=== PATIENT | female | born 1960 | race Caucasian/White ===

== ENCOUNTER 2016-11-24 23:17 | Emergency (ER) | payer SELFPAY ==
[~2016-11-24] VITALS: Ht 154.9 cm; Wt 56.7 kg
[~2016-11-24 23:17] MED LIST: HYDR-3583 PO
--- OUTSIDE RECORDS SUMMARY | 2016-11-24 23:25 | XMS REPORT ---
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 Role Phone YG OSMAN CP Unavailable Allergies No Known Allergies Problems Problem Type Condition ICD-9 Code Onset Dates Condition Status Problem Other malaise and fatigue 780.79 Active Assessment Dental examination V72.2 Active Problem Acute sinusitis, unspecified 461.9 Active Medications No Known Medications Procedures Procedure Coding System Code Date INTRAORL-PERIAPICAL 1 FILM 66463 CPT-4 D0220 September 30, 2014 BITEWINGS - TWO FILMS CPT-4 D0272 September 30, 2014 LTD ORAL EVALUATION - PROBLEM FOCUS CPT-4 D0140 September 30, 2014 EXTRAC ERUPTED TOOTH/EXPOSED ROOT CPT-4 D7140 September 30, 2014 Results No Known Results Summary Purpose [employer] Submission
--- NOTE | 2016-11-24 23:36 | ED GI ---
General Chief Complaint: Abdominal/GI Problems Stated Complaint: UPPER ABD PAIN Source of Information: Patient, Other Exam Limitations: No Limitations History of Present Illness Time Seen By Provider: 23:26 Initial Comments Patient presents to ER with a chief complaint of epigastric cramping pain that is intermittent and colicky and accompanied by some nausea and retching for the past 1-1/2 days. She has no fever or chills nor dysuria or shortness of breath or cough. No other significant medical problems. She takes an antihistamine for allergies only. No sick contacts. No recent antibiotic use. No diarrhea or constipation however she has had 3 bowel movements today already. Allergies and Home Medications Allergies Coded Allergies: Penicillins (Unverified Allergy, Mild, 04/20/09) Home Medications No Active Prescriptions or Reported Meds Review of Systems Constitutional: No chills, No diaphoresis EENTM: No Eye Pain, No Ear Pain Respiratory: Denies Cough, Denies Orthopnea Cardiovascular: Denies Chest Pain, Denies Edema, Denies Irregular Heart Rate, Denies Lightheadedness Gastrointestinal: See HPI, Abdominal Pain (epigastric), Denies Constipated, Denies Diarrhea, Denies Difficulty Swallowing, Nausea Genitourinary: Denies Burning, Denies Discharge Musculoskeletal: No back pain, No joint pain Skin: No pruritus, No rash Psychiatric/Neurological: Denies Headache, Denies Numbness, Denies Paresthesia Past Gnijquy-Hbiark-Efmgny Hx Patient Social History Alcohol Use: Denies Use Recreational Drug Use: No Smoking Status: Current Everyday Smoker Type Used: Cigarettes (0.75 ppd) Recent Foreign Travel: No Contact w/Someone Who Travel: No Reproductive System Hx Reproductive Disorders: No Physical Exam Vital Signs Capillary Refill : General Appearance: WD/WN, no apparent distress HEENT: PERRL/EOMI, normal ENT inspection, pharynx normal Neck: non-tender, supple, normal inspection Respiratory: chest non-tender, lungs clear, normal breath sounds Cardiovascular: normal peripheral pulses, regular rate, rhythm, no edema Peripheral Pulses: 2+ Radial Pulses (R), 2+ Radial Pulses (L) Gastrointestinal: soft, no organomegaly, no pulsatile mass, abnormal bowel sounds (hyperactive bowel sounds), tenderness (epigastric mildly tender) Back: normal inspection, no CVA tenderness Neurologic/Psychiatric: alert, oriented x 3 Skin: normal color, warm/dry Lymphatic: no adenopathy Departure Impression Impression: Primary Impression: Viral gastroenteritis Disposition: 01 HOME, SELF-CARE Condition: Stable Departure-Patient Inst. Decision time for Depature: 23:34 Referrals: [facility] (PCP/Family) Primary Care Physician Patient Instructions: Viral Gastroenteritis Add. Discharge Instructions: Your goal is to drink adequate fluids. If you're nauseated take one tablet of Zofran and place under your tongue and allowed to absorb to your mouth every 6 hours as needed. If he begins to have diarrhea just drink more fluids. If the diarrhea persists for greater than 24-48 hours he can take 2 tablets of Imodium and then one more tablet every 4 hours until the diarrhea stops. Keep your hands clean with soap and water or antiseptic rinse. If your symptoms persist for greater than 10 days or you begin to have new or worrisome symptoms you should follow up with your primary care physician for further evaluation. If you have diarrhea eat bananas, rice, applesauce, toast or other high-fiber foods and drink plenty of fluids. All discharge instructions reviewed with patient and/or family. Voiced understanding. Scripts Ondansetron (Zofran Odt) 4 Mg Tab.rapdis 4 MG PO Q6H Y for NAUSEA/VOMITING-1ST LINE, #10 TAB 0 Refills Prov: BALDOMERO COCHRAN 11/24/16 Copy Copies To 1: SAM BLACK TITUS J Nov 24, 2016 23:36
[2016-11-24] MEDS ORDERED: ONDA4TAB8 PO (23:37)
[2016-11-24] MEDS ORDERED: RX-ONDANSETRON 4 MG ODT (ZOFRAN) PPK #4 PO STA (23:38)
[2016-11-24 23:43] VITALS: BP 149/84
== END 2016-11-24 23:41 | disposition home or self-care (01) ==
LOC: EDUNIT# 23:17 → ER 23:20
DX: A08.4 Viral intestinal infection, unspecified (principal); F17.210 Nicotine dependence, cigarettes, uncomplicated
CPT/HCPCS: 99283

== ENCOUNTER 2016-12-24 19:02 | Emergency (ER) | payer SELFPAY ==
[~2016-12-24] VITALS: Ht 157.5 cm; Wt 61.2 kg
[~2016-12-24 19:02] MED LIST changes: +ONDA4TAB8 PO
--- OUTSIDE RECORDS SUMMARY | 2016-12-24 19:07 | XMS REPORT | Continuity of Care Document ---
Demographics Preferred Language Unknown Marital Status Unknown Jainism Affiliation Unknown Race Unknown Ethnic Group Unknown Author Author [facility] Address Unknown Phone Unavailable Allergies Active Description Code Type Severity Reaction Onset Reported/Identified Relationship to Patient Clinical Status Yes Penicillins [id number] Drug Allergy Mild N/A 04/20/2009 Yes Penicillins Drug Allergy 12/09/2009 Medications Problems Date Dx Coded Attending Type Code Diagnosis Diagnosed By 12/09/2009 466.0 ACUTE BRONCHITIS 12/09/2009 466.0 ACUTE BRONCHITIS 04/29/2010 465.9 UPPER RESPIRATORY INFECTION 04/29/2010 V17.3 reported family history ischemic heart disease before age 50 04/29/2010 465.9 UPPER RESPIRATORY INFECTION 04/29/2010 V17.3 reported family history ischemic heart disease before age 50 12/16/2010 Ot 610.0 01/12/2011 Ot 610.1 04/09/2012 780.79 feeling tired or poorly 04/09/2012 780.79 feeling tired or poorly 04/29/2012 461.9 SINUSITIS ACUTE 02/02/2014 Ot 610.0 02/02/2014 Ot 793.89 02/02/2014 Ot V15.89 02/02/2014 Ot 610.0 02/02/2014 Ot V67.9 02/02/2014 Ot 610.0 02/02/2014 Ot 610.3 02/02/2014 Ot 610.4 02/02/2014 Ot 611.89 02/02/2014 Ot 610.0 02/02/2014 Ot V15.89 02/02/2014 Ot V67.09 02/02/2014 Ot 610.0 02/02/2014 Ot 611.72 02/02/2014 Ot V72.84 02/02/2014 Ot V74.8 02/02/2014 Ot 610.1 02/02/2014 Ot V67.09 02/02/2014 Ot 793.80 02/02/2014 Ot V67.9 02/02/2014 MADDI RALPH DO Ot 793.80 02/02/2014 MADDI RALPH DO Ot V67.9 02/02/2014 MADDI RALPH DO Ot 793.80 11/24/2016 Ot 610.1 DIFFUS CYSTIC MASTOPATHY 11/24/2016 Ot V67.09 SURGERY FOLLOW-UP, OTHER SURGERY 11/24/2016 Ot 793.80 UNSPEC ABNORMAL MAMMOGRAM 11/24/2016 Ot V67.9 FOLLOW-UP EXAM NOS 11/24/2016 MADDI RALPH DO Ot 793.80 UNSPEC ABNORMAL MAMMOGRAM 11/24/2016 MADDI RALPH DO Ot V67.9 FOLLOW-UP EXAM NOS 11/24/2016 MADDI RALPH DO Ot 793.80 UNSPEC ABNORMAL MAMMOGRAM 11/24/2016 MADDI RALPH DO Ot 610.1 DIFFUS CYSTIC MASTOPATHY 11/24/2016 SAMMIE UREÑA, BALDOMERO J Ot A08.4 VIRAL INTESTINAL INFECTION, UNSPECIFIED 11/24/2016 SAMMIE UREÑA, BALDOMERO J Ot F17.210 NICOTINE DEPENDENCE, CIGARETTES, UNCOMPL 11/24/2016 SAMMIE UREÑA, BALDOMERO J Ot R10.13 EPIGASTRIC PAIN 11/24/2016 Ot 610.1 DIFFUS CYSTIC MASTOPATHY 11/24/2016 Ot V67.09 SURGERY FOLLOW-UP, OTHER SURGERY 11/24/2016 Ot 793.80 UNSPEC ABNORMAL MAMMOGRAM 11/24/2016 Ot V67.9 FOLLOW-UP EXAM NOS 11/24/2016 MADDI RALPH DO Ot 793.80 UNSPEC ABNORMAL MAMMOGRAM 11/24/2016 MADDI RALPH DO Ot V67.9 FOLLOW-UP EXAM NOS 11/24/2016 MADDI RALPH DO Ot 793.80 UNSPEC ABNORMAL MAMMOGRAM 11/24/2016 MADDI RALPH DO Ot 610.1 DIFFUS CYSTIC MASTOPATHY 11/26/2016 SAMMIE UREÑA, BALDOMERO J Ot A08.4 VIRAL INTESTINAL INFECTION, UNSPECIFIED 11/26/2016 SAMMIE UREÑA, BALDOMERO J Ot F17.210 NICOTINE DEPENDENCE, CIGARETTES, UNCOMPL 11/26/2016 SAMMIE UREÑA, BALDOMERO J Ot R10.13 EPIGASTRIC PAIN Procedures Code [place] [address] INFLUENZA A & B (IN-HOUSE) 04/09/2012 Results Encounters ACCT No. Visit Date/Time Discharge Status Pt. Type Provider Facility Loc./Unit Complaint [id number] 04/29/2012 16:15:00 04/29/2012 23: 59:59 CLS Outpatient [id number] 04/09/2012 16:28:00 04/09/2012 23: 59:59 CLS Outpatient [id number] 11/24/2016 23:20:00 2016 23:41:00 DIS Emergency SAMMIE UREÑA, BALDOMERO Jessica [facility] ER UPPER ABD PAIN [id number] 02/02/2014 14:07:00 2013 23:59:59 CLS Outpatient RALPH DO, MADDI W [facility] RAD FIBROCYSTIC BREASTS [id number] 01/09/2013 13:38:00 2012 23:59:59 CLS Outpatient RALPH DO, MADDI W [facility] RAD ABNORMAL BREAST US [id number] 12/12/2012 12:58:00 2012 23:59:59 CLS Outpatient RALPH DO, MADDI W [facility] RAD SIX MONTH FOLLOW-UP,ABN MAMMO [id number] 06/11/2012 13:44:00 Document Registration [id number] 12/12/2011 13:56:00 Document Registration [id number] 01/12/2011 05:39:00 Document Registration [id number] 01/09/2011 08:32:00 Document Registration [id number] 12/16/2010 10:19:00 Document Registration [id number] 10/11/2010 10:48:00 Document Registration [id number] 06/21/2010 12:47:00 Document Registration [id number] 11/24/2009 13:49:00 Document Registration [id number] 10/19/2009 10:57:00 Document Registration [id number] 07/14/2009 09:07:00 Document Registration [id number] 03/23/2009 13:29:00 Document Registration
--- NOTE | 2016-12-24 19:54 | ED Lower Extremity ---
General Chief Complaint: Lower Extremity Stated Complaint: R LEG PAIN Nursing Triage Note: PT AMBULATORY TO ROOM C/O right LEG/KNEE PAIN, DENIES INJURY. STATES SHE NOTICED IT APPROX 1 WEEK AGO AND PAIN HAS GOTTEN WORSE PSAT FEW DAYS. Nursing Sepsis Screen: No Definite Risk Source: patient Exam Limitations: no limitations History of Present Illness Time seen by provider: 19:54 Initial Comments 56-year-old female patient presents to the emergency department complains of right lower extremity/right knee pain. Patient denies any known injury. Reports symptom onset was approximately one week ago. Has noticed increased swelling behind the right knee and down to the right medial ankle. Denies claudication, shortness of air, chest pain. Onset: last week Pain/Injury Location: right leg, right knee Method of Injury: unknown Modifying Factors: Worse With Movement, Worse With Other (worse with palpation. ) Allergies and Home Medications Allergies Coded Allergies: Penicillins (Unverified Allergy, Mild, 04/20/09) Home Medications Naproxen 500 Mg Tablet, 500 MG PO BID, #20 Ref 0 Prescribed by: ELIZABETH PENDLETON on 12/24/162136 Ondansetron 4 Mg Tab.rapdis, 4 MG PO Q6H PRN for NAUSEA/VOMITING-1ST LINE, #10 Ref 0 Prescribed by: BALDOMERO COCHRAN on 11/24/162336 Prednisone 20 Mg Tab, 40 MG PO DAILY, #10 Ref 0 Prescribed by: ELIZABETH PENDLETON on 12/24/162136 Past Qtzqfms-Qrzbjj-Jngxki Hx Patient Social History Alcohol Use: Denies Use Recreational Drug Use: No Type Used: Cigarettes 2nd Hand Smoke Exposure: Yes Recent Foreign Travel: No Contact w/Someone Who Travel: No Recent Infectious Disease Expo: No Recent Hopitalizations: No Physical Abuse: No Sexual Abuse: No Immunizations Up To Date Tetanus Booster (TDap): Unknown Seasonal Allergies Seasonal Allergies: Yes Surgeries History of Surgeries: No Respiratory History of Respiratory Disorde: No Cardiovascular History of Cardiac Disorders: No Neurological History of Neurological Disord: No Reproductive System Hx Reproductive Disorders: No Sexually Transmitted Disease: No 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 Genitourinary History of Genitourinary Disor: No Gastrointestinal History of Gastrointestinal Di: No Musculoskeletal History of Musculoskeletal Dis: No Endocrine History of Endocrine Disorders: No HEENT History of HEENT Disorders: No Cancer History of Cancer: No Psychosocial History of Psychiatric Problem: No Suicide Risk Score: 0 Integumentary History of Skin or Integumenta: No Blood Transfusions History of Blood Disorders: No Physical Exam Vital Signs Vital Sign - Last 12Hours 12/24/16 19:21 Temp 97.8 Pulse 80 Resp 14 B/P (MAP) 120/71 Pulse Ox 99 O2 Delivery Room Air Capillary Refill : Less Than 3 Seconds Progress/Results/Core Measures Results/Orders My Orders Orders - ELIZABETH PENDLETON Knee, Right, 3 Views (12/24/16 20:04) Us Venous Lower Ext Rt (12/24/16 20:04) Vital Signs/I&O Vital Sign - Last 12Hours 12/24/16 12/24/16 19:21 21:40 Temp 97.8 97.8 Pulse 80 75 Resp 14 16 B/P (MAP) 120/71 Pulse Ox 99 99 O2 Delivery Room Air Blood Pressure Mean: 87 Departure Impression Impression: Primary Impression: Effusion, right knee Additional Impression: Pain of right lower extremity Disposition: 01 HOME, SELF-CARE Condition: Improved Departure-Patient Inst. Decision time for Depature: 21:32 Referrals: [facility] (PCP/Family) Primary Care Physician Patient Instructions: Osteoarthritis (DC) Add. Discharge Instructions: All discharge instructions reviewed with patient and/or family. Voiced understanding. Medications as instructed. Tylenol extra strength over-the- counter as directed for pain. Ice pack or heating pads as needed for pain. Follow-up with your primary care provider if no improvement in symptoms in 7-10 days. Return to the emergency department for worsened pain, swelling, numbness , weakness, discoloration, or any other concerns. Scripts Naproxen (Naprosyn) 500 Mg Tablet 500 MG PO BID, #20 TAB 0 Refills Prov: ELIZABETH PENDLETON 12/24/16 Prednisone (Prednisone) 20 Mg Tab 40 MG PO DAILY, #10 TAB 0 Refills Prov: ELIZABETH PENDLETON 12/24/16 ELIZABETH PENDLETON Dec 24, 2016 19:54
--- NOTE | 2016-12-24 20:22 | Diagnostic Imaging Report ---
INDICATION: Right knee pain, denies injury, symptoms started one week ago, getting worse for the last couple of days with some swelling. COMPARISON STUDY: None FINDINGS: 3 views of the right knee demonstrate normal ossification. No fracture, dislocation or joint effusion is present. IMPRESSION: Negative right knee. Dictated by: Dictated on workstation # [id number]
--- NOTE | 2016-12-24 21:20 | Diagnostic Imaging Report ---
INDICATION: Right lower extremity pain. COMPARISON STUDIES: None. FINDINGS: Right lower extremity venous Doppler demonstrates no evidence of DVT. No fluid collections are identified. IMPRESSION: Negative right lower extremity venous Doppler. Dictated by: Dictated on workstation # [id number]
[2016-12-24] MEDS ORDERED: PRD20T PO (21:37)
[2016-12-24] MEDS ORDERED: NAPR500T PO (21:37)
[2016-12-24 21:40] VITALS: BP 125/72
== END 2016-12-24 21:39 | disposition home or self-care (01) ==
LOC: EDUNIT# 19:02 → ER 19:04
DX: M25.461 Effusion, right knee (principal); M79.604 Pain in right leg; Z77.22 Contact with and (suspected) exposure to environmental tobacco smoke (acute) (chronic)
CPT/HCPCS: 73562; 99281

== ENCOUNTER → 2017-01-30 | Outpatient (CLI) | payer OTHER ==
[~2017-01-30] MED LIST changes: +NAPR500T PO; +PRD20T PO
--- NOTE | 2017-01-30 10:30 | Diagnostic Imaging Report ---
PROCEDURE: MRI right joint lower extremity without contrast. TECHNIQUE: Multiplanar, multisequence non contrast-enhanced MRI of the right lower extremity was accomplished. INDICATION: Right knee pain. FINDINGS: There is a tiny suprapatellar effusion. There is mild thickening in the quadriceps tendon distally probably sequela of prior injury with mild tendinosis. The patellar tendon appears intact. The ACL and the PCL are intact. There is a nondisplaced oblique tear involving the posterior horn and extending to the body of the medial meniscus. The anterior horn appears intact. There is an oblique horizontal nondisplaced tear involving the body of the lateral meniscus with slight extension into the anterior horn and posterior horn. There is also slight thickening and nonspecific increased signal in the posterior root of the lateral meniscus probably sequela of an old injury. The MCL and the lateral collateral ligament complex are intact. Mild cystic change along the tibial spine is seen. There is also mild subchondral edema along the lateral aspect of the lateral tibial plateau and subchondral edema in the mid patella level. This appears to be degenerative related. There is 25-50% cartilage thinning in the patellofemoral compartment and cartilage fissuring in the medial and lateral compartments without overall significant thinning. There are marginal osteophytes seen in the three compartments. IMPRESSION: 1. There are medial and lateral meniscal nondisplaced tears. 2. Suggestion of old injury and mild tendinosis involving the distal quadriceps tendon. 3. Generally mild tricompartment osteoarthritis changes. Dictated by: Dictated on workstation # [id number]
== END ==
LOC: RAD 08:51
PROVIDERS: ATTEND Family Medicine
DX: S83.241A Other tear of medial meniscus, current injury, right knee, initial encounter (principal); S83.281A Other tear of lateral meniscus, current injury, right knee, initial encounter; X58.XXXA Exposure to other specified factors, initial encounter; Y99.8 Other external cause status
CPT/HCPCS: 73721

== ENCOUNTER 2017-03-22 21:37 | Emergency (ER) | payer SELFPAY ==
[~2017-03-22] VITALS: Ht 157.5 cm; Wt 61.2 kg
[~2017-03-22 21:37] MED LIST changes: +NAPR-1071 PO; -NAPR500T PO
--- NOTE | 2017-03-22 22:22 | ED Lower Extremity ---
General Chief Complaint: Lower Extremity Stated Complaint: RT KNEE PAIN Nursing Triage Note: patient states that she has been having knee pain x2 days. it is slightly swollen. cortisone shot 02/[address] hernandez and told to exercise for tendonitis. Nursing Sepsis Screen: No Definite Risk Source: patient Exam Limitations: no limitations History of Present Illness Time seen by provider: 22:20 Initial Comments To ER with intermittent right knee pain for 2 days. A few weeks ago she was seen at [facility] by Villa Hernandez, nurse practitioner. Return MRI done which showed some sort of ligament injury she states. She received a steroid injection in the right knee laterally on February 22. She denies fevers chills. Onset: yesterday Severity: moderate Pain/Injury Location: right knee Method of Injury: fell Modifying Factors: Worse With Movement Allergies and Home Medications Allergies Coded Allergies: Penicillins (Unverified Allergy, Mild, 04/20/09) Home Medications Naproxen 500 Mg Tablet, 500 MG PO BID, #20 Ref 0 Prescribed by: ELIZABETH PENDLETON on 12/24/162136 Ondansetron 4 Mg Tab.rapdis, 4 MG PO Q6H PRN for NAUSEA/VOMITING-1ST LINE, #10 Ref 0 Prescribed by: BALDOMERO COCHRAN on 11/24/16 2337 Prednisone 20 Mg Tab, 40 MG PO DAILY, #10 Ref 0 Prescribed by: ELIZABETH PENDLETON on 12/24/162136 Tramadol HCl 50 Mg Tablet, 50 MG PO Q6H PRN for PAIN-MODERATE, #20 Prescribed by: EMERALD TORRES on 03/22/17 2241 Constitutional: see HPI EENTM: see HPI Respiratory: no symptoms reported Cardiovascular: no symptoms reported Genitourinary: no symptoms reported Musculoskeletal: no symptoms reported Skin: no symptoms reported Psychiatric/Neurological: No Symptoms Reported Past Qicjamt-Qfmhjs-Qxlfqx Hx Patient Social History Alcohol Use: Denies Use Recreational Drug Use: No Type Used: Cigarettes 2nd Hand Smoke Exposure: Yes Recent Foreign Travel: No Contact w/Someone Who Travel: No Recent Infectious Disease Expo: No Recent Hopitalizations: No Physical Abuse: No Sexual Abuse: No Immunizations Up To Date Tetanus Booster (TDap): Unknown Seasonal Allergies Seasonal Allergies: Yes Surgeries History of Surgeries: No Respiratory History of Respiratory Disorde: No Cardiovascular History of Cardiac Disorders: No Neurological History of Neurological Disord: No Reproductive System Hx Reproductive Disorders: No Sexually 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 Disease: 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 Genitourinary History of Genitourinary Disor: No Gastrointestinal History of Gastrointestinal Di: No Musculoskeletal History of Musculoskeletal Dis: No Endocrine History of Endocrine Disorders: No HEENT History of HEENT Disorders: No Cancer History of Cancer: No Psychosocial History of Psychiatric Problem: No Suicide Risk Score: 0 Integumentary History of Skin or Integumenta: No Blood Transfusions History of Blood Disorders: No Family Medical History Significant Family History: No Pertinent Family Hx Physical Exam Vital Signs Vital Sign - Last 12Hours 03/22/17 21:48 Temp 97.6 Pulse 89 Resp 20 B/P (MAP) 128/72 (90) Pulse Ox 94 O2 Delivery Room Air Capillary Refill : Less Than 3 Seconds General Appearance: WD/WN, no apparent distress HEENT: PERRL/EOMI, normal ENT inspection Neck: non-tender, full range of motion Respiratory: no respiratory distress, no accessory muscle use Hips: bilateral hip non-tender, bilateral hip normal inspection, bilateral hip normal range of motion Legs: bilateral leg non-tender, bilateral leg normal inspection, bilateral leg normal range of motion Knees: right knee pain, right knee soft tissue tenderness, right knee swelling , right knee other (no erythema but there is some swelling without palpable large joint effusion. There is a palpable small joint effusion.) Ankles: bilateral ankle non-tender, bilateral ankle normal inspection, bilateral ankle normal range of motion Feet: bilateral foot non-tender, bilateral foot normal inspection, bilateral foot normal range of motion Neurologic/Psychiatric: alert, normal mood/affect, oriented x 3 Progress/Results/Core Measures Results/Orders Lab Results Laboratory Tests Test 03/22/17 22:20 Range/Units White Blood Count 7.9 4.3-11.0 10^3/uL Red Blood Count 4.89 4.35-5.85 10^6/uL Hemoglobin 14.2 11.5-16.0 G/DL Hematocrit 37 35-52 % Mean Corpuscular Volume 77 L 80-99 FL Mean Corpuscular Hemoglobin 29 25-34 PG Mean Corpuscular Hemoglobin Concent 38 H 32-36 G/DL Red Cell Distribution Width 12.9 10.0-14.5 % Platelet Count 282 130-400 10^3/uL Mean Platelet Volume 8.9 7.4-10.4 FL Neutrophils (%) (Auto) 49 42-75 % Lymphocytes (%) (Auto) 40 12-44 % Monocytes (%) (Auto) 6 0-12 % Eosinophils (%) (Auto) 4 0-10 % Basophils (%) (Auto) 1 0-10 % Neutrophils # (Auto) 3.9 1.8-7.8 X 10^3 Lymphocytes # (Auto) 3.1 1.0-4.0 X 10^3 Monocytes # (Auto) 0.4 0.0-1.0 X 10^3 Eosinophils # (Auto) 0.3 0.0-0.3 10^3/uL Basophils # (Auto) 0.1 0.0-0.1 10^3/uL C-Reactive Protein High Sensitivity 0.64 H 0.00-0.50 MG/DL My Orders Orders - EMERALD TORRES APRN Knee, Right, 3 Views (03/22/17 22:03) Cbc With Automated Diff (03/22/17 22:03) Erythrocyte Sedimentation Rate (03/22/17 22:03) Hs C Reactive Protein (03/22/17 22:03) Vital Signs/I&O Vital Sign - Last 12Hours 03/22/17 21:48 Temp 97.6 Pulse 89 Resp 20 B/P (MAP) 128/72 (90) Pulse Ox 94 O2 Delivery Room Air Blood Pressure Mean: 90 Departure Impression Impression: Primary Impression: Arthritis of right knee Additional Impression: Knee effusion, right Disposition: 01 HOME, SELF-CARE Condition: Stable Departure-Patient Inst. Decision time for Depature: 22:22 Referrals: FARNAZ PRATHER MD (PCP/Family) Primary Care Physician Patient Instructions: Arthritis and Exercise Add. Discharge Instructions: All discharge instructions reviewed with patient and/or family. Voiced understanding. Scripts Tramadol HCl (Ultram) 50 Mg Tablet 50 MG PO Q6H Y for PAIN-MODERATE, #20 TAB Prov: EMERALD TORRES APRN 03/22/17 EMERALD TORRES APRN Mar 22, 2017 22:22
[2017-03-22 22:36] LABS: BASOPHILS # (AUTO) 0.1 10^3/uL (0.0-0.1); BASOPHILS % (AUTO) 1 % (0-10); EOSINOPHILS # (AUTO) 0.3 10^3/uL (0.0-0.3); EOSINOPHILS % (AUTO) 4 % (0-10); HEMATOCRIT 37 % (35-52); HEMOGLOBIN 14.2 G/DL (11.5-16.0); LYMPHOCYTES # (AUTO) 3.1 X 10^3 (1.0-4.0); LYMPHOCYTES % (AUTO) 40 % (12-44); MEAN CORPUSCULAR HEMOGLOBIN 29 PG (25-34); MEAN CORPUSCULAR HGB CONC 38 G/DL (32-36); MEAN CORPUSCULAR VOLUME 77 FL (80-99); MEAN PLATELET VOLUME 8.9 FL (7.4-10.4); MONOCYTES # (AUTO) 0.4 X 10^3 (0.0-1.0); MONOCYTES % (AUTO) 6 % (0-12); NEUTROPHILS # (AUTO) 3.9 X 10^3 (1.8-7.8); NEUTROPHILS % (AUTO) 49 % (42-75); PLATELET COUNT 282 10^3/uL (130-400); RED BLOOD COUNT 4.89 10^6/uL (4.35-5.85); RED CELL DISTRIBUTION WIDTH 12.9 % (10.0-14.5); WHITE BLOOD COUNT 7.9 10^3/uL (4.3-11.0)
[2017-03-22] MEDS ORDERED: TRAM-42 PO (22:41)
[2017-03-22 22:58] VITALS: BP 128/72
[2017-03-22 23:20] LABS: ERYTHROCYTE SEDIMENTATION RATE 10 MM/HR (0-30)
--- NOTE | 2017-03-23 08:08 | Diagnostic Imaging Report ---
INDICATION: Ligamentous injury. No substantial joint effusion. No fracture or dislocation. When compared to the study of 12/24/2016, no obvious change. IMPRESSION: No acute appearing abnormality Dictated by: Dictated on workstation # [id number]
== END 2017-03-22 22:58 | disposition home or self-care (01) ==
LOC: EDUNIT# 21:37 → ER 21:38
DX: M17.11 Unilateral primary osteoarthritis, right knee (principal); Z77.22 Contact with and (suspected) exposure to environmental tobacco smoke (acute) (chronic)
CPT/HCPCS: 36415; 73562; 85025; 85652; 86141; 99283

== ENCOUNTER 2018-02-23 18:33 | Emergency (ER) | payer SELFPAY ==
[~2018-02-23] VITALS: Ht 157.5 cm; Wt 59.0 kg
[~2018-02-23 18:33] MED LIST changes: +TRAM-42 PO
[2018-02-23] MEDS ORDERED: BUPIVACAINE 0.5% 30 ML (SENSORCAINE) VIAL ONE (18:47)
[2018-02-23] MEDS ORDERED: LIDOCAINE 2% VISCOUS 15 ML UDC ONE (18:47)
--- NOTE | 2018-02-23 18:52 | ED EENT ---
History of Present Illness General Chief Complaint: Dental Problems/Pain Stated Complaint: DENTAL PAIN/FACIAL SWELLING Nursing Triage Note: Pt has cc of dental pain and dental swelling of the right side. Pt stated that it has been going on for the past 4 days, but the pain/swelling has gotten worse yesterday/today. Pt tried to go to walk in clinic, but they were closed. Source: patient, family Exam Limitations: no limitations History of Present Illness Date Seen by Provider: Feb 23, 2018 Time Seen by Provider: 18:40 Initial Comments The patient's having presented to the ER by private conveyance with family and chief complaint of 4 days progressively worsening right lower jaw pain and swelling. She says she has bad gum disease and has plans after the first year to have her dentist do a complete dental extraction. She's having no fevers discharge or immunocompromise. She does take meloxicam daily for her knee. She' s been using Tylenol and topical dental gels derd-xxj-oanwwrt with no relief. She has not been on antibiotics for years. Allergies and Home Medications Allergies Coded Allergies: Penicillins (Unverified Allergy, Mild, 04/20/09) Home Medications Naproxen 500 Mg Tablet, 500 MG PO BID Prescribed by: ELIZABETH PENDLETON on 12/24/162136 Ondansetron 4 Mg Tab.rapdis, 4 MG PO Q6H PRN for NAUSEA/VOMITING-1ST LINE Prescribed by: BALDOMERO COCHRAN on 11/24/16 2337 Prednisone 20 Mg Tab, 40 MG PO DAILY Prescribed by: ELIZABETH PENDLETON on 12/24/162136 Tramadol HCl 50 Mg Tablet, 50 MG PO Q6H PRN for PAIN-MODERATE Prescribed by: EMERALD TORRES on 03/22/17 2241 Patient Home Medication List Home Medication List Reviewed: Yes Review of Systems Review of Systems Constitutional: No chills, No diaphoresis Eyes: Denies Blindness, Denies Blurred Vision Ears: Denies Dizziness, Denies Pain Nose: denies clots, denies congestion Mouth: denies clots, denies loose teeth; pain Throat: denies pain, denies swelling Respiratory: No cough, No phlegm Past Jhdqmqu-Uwuogq-Gexjor Hx Patient Social History Alcohol Use: Denies Use Recreational Drug Use: No Smoking Status: Current Everyday Smoker Type Used: Cigarettes 2nd Hand Smoke Exposure: Yes Recent Foreign Travel: No Contact w/Someone Who Travel: No Recent Infectious Disease Expo: No Recent Hopitalizations: No Physical Abuse: No Sexual Abuse: No Mistreated: No Fear: No Immunizations Up To Date Tetanus Booster (TDap): Unknown Seasonal Allergies Seasonal Allergies: Yes Past Medical History Surgeries: No Respiratory: No Cardiac: No Neurological: No Reproductive Disorders: No 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 0oz. 58.335233va; BMI Method:Stated General Appearance: WD/WN, mild distress Eyes: bilateral eye normal inspection, bilateral eye PERRL, bilateral eye EOMI Ears: bilateral ear auricle normal, bilateral ear canal normal, bilateral ear TM normal Nose: normal inspection; No active bleeding Mouth/Throat: other (advanced state of dental decay with some gingival swelling but no fluctuance or abscess.) Cardiovascular: normal peripheral pulses, regular rate, rhythm Gastrointestinal: non tender, soft Procedures/Interventions Progress Right lower alveolar nerve block using 2 cc of half percent Marcaine with epinephrine and 1 cc of 1% lidocaine without epinephrine. We found our landmarks place the needle right spot patient did pull back a bit after we have aspirated and started to inject but I think we got most of the 2 cc of the mixture into the vicinity of the alveolar nerve. Patient tolerated procedure well. Progress/Results/Core Measures Results/Orders My Orders Orders - BALDOMERO COCHRAN Bupivacaine 0.5% W/Epi Inj (Sensorcaine (02/23/18 19:00) Lidocaine 2% Viscous 15 Ml (Xylocaine Vi (02/23/18 19:00) Lidocaine 2% Viscous 15 Ml (Xylocaine Vi (02/23/18 18:47) Bupivacaine 0.5% Injection (Sensorcaine (02/23/18 18:47) Medications Given in ED Current Medications Medications Dose Ordered Sig/[place] Route Start Time Stop Time Status Last Admin Dose Admin Bupivacaine HCl/ Epinephrine Bitart 30 ml ONCE ONCE INJ 02/23/18 19:00 02/23/18 19:01 02/23/18 18:53 30 ML Lidocaine HCl 15 ml ONCE ONCE PO 02/23/18 19:00 02/23/18 19:01 02/23/18 18:52 15 ML Vital Signs/I&O 02/23/18 18:39 Temp 99.1 Pulse 76 Resp 16 B/P (MAP) 122/76 (91) Pulse Ox 99 O2 Delivery Room Air Blood Pressure Mean: 91 Progress Progress Note : Time: 19:00 Progress Note The patient is accepted to do an alveolar nerve block. Viscous lidocaine clindamycin antibiotics and continue the Tylenol and heat. Departure Impression Primary Impression: Abscess, dental Disposition: HOME, SELF-CARE Condition: Stable Departure-Patient Inst. Decision time for Depature: 19:01 Referrals: FARNAZ PRATHER MD (PCP/Family) Primary Care Physician Patient Instructions: Dental Pain (DC) Add. Discharge Instructions: Use the viscous lidocaine every 2 hours as needed on gauze applied directly to the gums or teeth that are hurting. Continue use heat and Tylenol 1000 mg every 8 hours. Continue to use the meloxicam as prescribed. marketing support specialist the antibiotics and start taking the clindamycin. Sunday morning call a dentist and an appointment. All discharge instructions reviewed with patient and/or family. Voiced understanding. Scripts Clindamycin HCl (Clindamycin HCl) 150 Mg Capsule 450 MG PO TIDAC for 7 Days, #63 CAP 0 Refills Prov: BALDOMERO COCHRAN 02/23/18 BALDOMERO COCHRAN Feb 23, 2018 18:52
[2018-02-23] MEDS ORDERED: BUP/EPI 0.5% 1:200,000 (SENSORCAINE) 30 ML VIAL INJ ONE (19:00)
[2018-02-23] MEDS ORDERED: LIDOCAINE 2% VISCOUS 15 ML UDC PO ONE (19:00)
[2018-02-23] MEDS ORDERED: CLIN150C17 PO (19:04)
[2018-02-23 19:10] VITALS: BP 122/76
== END 2018-02-23 19:10 | disposition home or self-care (01) ==
LOC: EDUNIT# 18:33 → ER 18:34
DX: K04.7 Periapical abscess without sinus (principal); F17.210 Nicotine dependence, cigarettes, uncomplicated; Z88.0 Allergy status to penicillin; Z79.52 Long term (current) use of systemic steroids
CPT/HCPCS: 41800

== ENCOUNTER 2018-03-16 18:49 | Emergency (ER) | payer SELFPAY ==
[~2018-03-16] VITALS: Ht 157.5 cm; Wt 57.6 kg
[~2018-03-16 18:49] MED LIST changes: +CLIN150C17 PO
--- OUTSIDE RECORDS SUMMARY | 2018-03-16 18:54 | XMS REPORT ---
Author Author SHANKAR FELIX Organization [facility] Address [address] [place] [address] Care Team Providers Care Senior Product Development Manager Name Role Phone SHANKAR FELIX Unavailable PROBLEMS Type Condition ICD9-CM Code QMT62-TH Code Onset Dates Condition Status SNOMED Code Problem Other chronic pain G89.29 Active 32256991 Problem Gastroesophageal reflux disease without esophagitis K21.9 Active 367979147 ALLERGIES No Information ENCOUNTERS Encounter Location Date Diagnosis [address] [address] Sep, Patellar tendinitis, right knee M76.[address] [address] Jun, Encounter to establish care Z76.89 ; Other chronic pain G89.29 ; Pain in right knee M25.561 and Gastroesophageal reflux disease without esophagitis K21.9 [place] [address] [address] Jun, [place] [address] [address] Mar, Effusion, right knee M25.[address] [address] Feb, Tibialis tendinitis of right lower extremity M76.821 and Chondromalacia, right knee M94.[address] [address] Jan, Effusion, right knee M25.461 and Fatigue, unspecified type R53.83 [facility] [address] [id number] Sep, Dental examination V72.2 [facility] [address] [facility] [id number] [address] Jun, 2014 [facility] [address] [facility] [id number] [address] Jun, [facility] [address] [place] [id number] [address] Apr, [facility] [address] [address] Mar, [facility] [address] [id number] [address] May, [facility] [address] [place] [id number] [address] Mar, [facility] [address] [place] [id number] [address] Apr, IMMUNIZATIONS No Known Immunizations SOCIAL HISTORY Never Assessed REASON FOR VISIT knee injection Consult Shara Grimaldo MA PLAN OF CARE Activity Details Follow Up prn Reason: VITAL SIGNS Height 62 in 2017-09-20 Blood pressure systolic 104 mmHg 2017-09-20 Blood pressure diastolic 62 mmHg 2017-09-20 MEDICATIONS Medication Instructions Dosage Frequency Start Date End Date Duration Status Zantac 150 MG Orally Once a day 1 tablet at bedtime 24h Jun, 30 day(s) Unknown Meloxicam 15 mg Orally Once a day 1 tablet 24h Jun, Sep, 30 day(s) Unknown RESULTS No Results PROCEDURES Procedure Date Ordered Result Body Site DRAIN/INJECT, JOINT/BURSA September 20, 2017 DEPO MEDROL 80 MG/ML September 20, 2017 INSTRUCTIONS MEDICATIONS ADMINISTERED No Known Medications MEDICAL (GENERAL) HISTORY Type Description Date Surgical History cyst removed from left leg on right side of the knee and from her breast
--- OUTSIDE RECORDS SUMMARY | 2018-03-16 18:54 | XMS REPORT ---
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 Role Phone LINDA FORTUNETA Unavailable PROBLEMS Type Condition ICD9-CM Code PBY94-JI Code Onset Dates Condition Status SNOMED Code Problem Other chronic pain G89.29 Active 36498240 Problem Gastroesophageal reflux disease without esophagitis K21.9 Active 855781804 ALLERGIES No Information ENCOUNTERS Encounter Location Date Diagnosis [place] [address] [address] Feb, Gastroesophageal reflux disease without esophagitis K21.9 and Pain in right knee M25.561 [place] [address] [address] Sep, Patellar tendinitis, right knee M76.51 [place] [address] [address] Jun, Encounter to establish care Z76.89 ; Other chronic pain G89.29 ; Pain in right knee M25.561 and Gastroesophageal reflux disease without esophagitis K21.9 [place] [address] [place] [id number] [place] [address] Jun, [place] [address] [address] Mar, Effusion, right knee M25.461 [place] [address] [address] Feb, Tibialis tendinitis of right lower extremity M76.821 and Chondromalacia, right knee M94.261 [place] [address] [address] Jan, Effusion, right knee M25.461 and Fatigue, unspecified type R53.83 [facility] [address] [id number] [id number] Sep, Dental examination V72.2 [facility] [address], [place] [address] Jun, 2014 [facility] [address], [place] [address] Jun, [facility] [address], [place] [address] Apr, [facility] [address], [place] [address] Mar, [facility] [address], [place] [address] May, [facility] [address], [place] [address] Mar, [facility] [address] [place] [id number] [address] Apr, IMMUNIZATIONS No Known Immunizations SOCIAL HISTORY Never Assessed REASON FOR VISIT Medication refill request PLAN OF CARE VITAL SIGNS MEDICATIONS Medication Instructions Dosage Frequency Start Date End Date Duration Status Zantac 150 mg Orally Once a day 1 tablet at bedtime 24h Jun, 30 day(s) Active Meloxicam 15 mg Orally Once a day 1 tablet 24h Jun, 30 day(s) Active RESULTS No Results PROCEDURES No Known procedures INSTRUCTIONS MEDICATIONS ADMINISTERED No Known Medications MEDICAL (GENERAL) HISTORY Type Description Date Surgical History cyst removed from left leg on right side of the knee and from her breast
--- OUTSIDE RECORDS SUMMARY | 2018-03-16 18:55 | XMS REPORT ---
Author Author SMA BLACK [facility] Address [address] [place] [address] Care Team Providers Care Excellence Manager Name Role Phone BLACKSAM Unavailable PROBLEMS Type Condition ICD9-CM Code MCI85-IG Code Onset Dates Condition Status SNOMED Code Problem Other chronic pain G89.29 Active 60442444 Problem Gastroesophageal reflux disease without esophagitis K21.9 Active 627042070 ALLERGIES No Information ENCOUNTERS Encounter Location Date Diagnosis [address] [address] Sep, Patellar tendinitis, right knee M76.[address] [address] Jun, Encounter to establish care Z76.89 ; Other chronic pain G89.29 ; Pain in right knee M25.561 and Gastroesophageal reflux disease without esophagitis K21.9 [place] [address] [address] Jun, [place] [address] [address] Mar, Effusion, right knee M25.[address] [address] Feb, Tibialis tendinitis of right lower extremity M76.821 and Chondromalacia, right knee M94.261 [place] [address] [address] Jan, Effusion, right knee M25.461 and Fatigue, unspecified type R53.83 [facility] [address] [id number] Sep, Dental examination V72.2 [facility] [address] [place] [id number] [address] Jun, [facility] [address] [address] Jun, [facility] [address] [address] Apr, [facility] [address] [address] Mar, [facility] [address] [address] May, [facility] [address] [address] Mar, [facility] [address] [address] Apr, IMMUNIZATIONS No Known Immunizations SOCIAL HISTORY Never Assessed REASON FOR VISIT Appointment wasn't rescheduled PLAN OF CARE VITAL SIGNS MEDICATIONS Unknown Medications RESULTS No Results PROCEDURES No Known procedures INSTRUCTIONS MEDICATIONS ADMINISTERED No Known Medications MEDICAL (GENERAL) HISTORY Type Description Date Surgical History cyst removed from left leg on right side of the knee and from her breast
--- OUTSIDE RECORDS SUMMARY | 2018-03-16 18:55 | XMS REPORT ---
Author Author YAMILKA FARNAZ [facility] Address [address] [place] [address] Care Team Providers Care Enrobing Machine Feeder Name Role Phone YAMILKAMARISOL DE PAZHANY Unavailable PROBLEMS Type Condition ICD9-CM Code OEZ51-HU Code Onset Dates Condition Status SNOMED Code Problem Other chronic pain G89.29 Active 86055620 Problem Gastroesophageal reflux disease without esophagitis K21.9 Active 398597201 ALLERGIES No Information ENCOUNTERS Encounter Location Date Diagnosis [place] [address] [address] Sep, [address] [address] Jun, Encounter to establish care Z76.89 ; Other chronic pain G89.29 ; Pain in right knee M25.561 and Gastroesophageal reflux disease without esophagitis K21.9 [place] [address] [address] Jun, [place] [address] [address] Mar, Effusion, right knee M25.461 [place] [address] [address] Feb, Tibialis tendinitis of right lower extremity M76.821 and Chondromalacia, right knee M94.261 [place] [address] [address] Jan, Effusion, right knee M25.461 and Fatigue, unspecified type R53.83 [facility] [address] [id number] Sep, 2014 Dental examination V72.2 [facility] [address] [place] [id number] [address] Jun, [facility] [address] [address] Jun, [facility] [address] [address] Apr, [facility] [address] [place] [address] Mar, [facility] [address] [address] May, [facility] [address] [address] Mar, [facility] [address] [address] Apr, IMMUNIZATIONS No Known Immunizations SOCIAL HISTORY Never Assessed REASON FOR VISIT Refill Request PLAN OF CARE VITAL SIGNS MEDICATIONS Medication Instructions Dosage Frequency Start Date End Date Duration Status Naproxen 500 mg Orally every 12 hrs 1 tablet with food or milk as needed 12h 30 days Active RESULTS No Results PROCEDURES No Known procedures INSTRUCTIONS MEDICATIONS ADMINISTERED No Known Medications MEDICAL (GENERAL) HISTORY Type Description Date Surgical History cyst removed from left leg on right side of the knee and from her breast
--- OUTSIDE RECORDS SUMMARY | 2018-03-16 18:55 | XMS REPORT | Continuity of Care Document ---
Demographics Preferred Language Unknown Marital Status Unknown Sabianism Affiliation Unknown Race Unknown Ethnic Group Unknown Author Author [facility] Address Unknown Phone Unavailable Allergies Active Description Code Type Severity Reaction Onset Reported/Identified Relationship to Patient Clinical Status Yes Penicillins [id number] Drug Allergy Mild N/A 04/20/2009 Yes Penicillins Drug Allergy 12/09/2009 Medications There is no data. Problems Date Dx Coded Attending Type Code [...] FOLLOW-UP EXAM NOS 11/24/2016 MADDI RALPH DO W Ot 793.80 UNSPEC ABNORMAL MAMMOGRAM 11/24/2016 MADDI [...] UREÑA, BALDOMERO J Ot R10.13 EPIGASTRIC PAIN 12/24/2016 Ot 610.1 DIFFUS CYSTIC MASTOPATHY 12/24/2016 Ot V67.09 SURGERY FOLLOW-UP, OTHER SURGERY 12/24/2016 Ot 793.80 UNSPEC ABNORMAL MAMMOGRAM 12/24/2016 Ot V67.9 FOLLOW-UP EXAM NOS 12/24/2016 LOREE MADDI LOZANO W Ot 793.80 UNSPEC ABNORMAL MAMMOGRAM 12/24/2016 MADDI RALPH DO W Ot V67.9 FOLLOW-UP EXAM NOS 12/24/2016 LOREE DO, MADDI W Ot 793.80 UNSPEC ABNORMAL MAMMOGRAM 12/24/2016 LOREE DO, MADDI W Ot 610.1 DIFFUS CYSTIC MASTOPATHY 12/24/2016 Ot 610.1 DIFFUS CYSTIC MASTOPATHY 12/24/2016 Ot V67.09 SURGERY FOLLOW-UP, OTHER SURGERY 12/24/2016 Ot 793.80 UNSPEC ABNORMAL MAMMOGRAM 12/24/2016 Ot V67.9 FOLLOW-UP EXAM NOS 12/24/2016 MADDI RALPH DO W Ot 793.80 UNSPEC ABNORMAL MAMMOGRAM 12/24/2016 LOREE LOZANO, MADDI W Ot V67.9 FOLLOW-UP EXAM NOS 12/24/2016 MADDI RALPH DO W Ot 793.80 UNSPEC ABNORMAL MAMMOGRAM 12/24/2016 MADDI RALPH DO W Ot 610.1 DIFFUS CYSTIC MASTOPATHY 12/24/2016 ELIZABETH ESPINOZA Ot M25.461 EFFUSION, RIGHT KNEE 12/24/2016 ELIZABETH ESPINOZA Ot M79.604 PAIN IN RIGHT LEG 12/24/2016 ELIZABETH ESPINOZA Ot Z77.22 CNTCT W AND EXPSR TO ENVIRON TOBACCO SMO 01/30/2017 Ot 610.1 DIFFUS CYSTIC MASTOPATHY 01/30/2017 Ot V67.09 SURGERY FOLLOW-UP, OTHER SURGERY 01/30/2017 Ot 793.80 UNSPEC ABNORMAL MAMMOGRAM 01/30/2017 Ot V67.9 FOLLOW-UP EXAM NOS 01/30/2017 MADDI RALPH DO W Ot 793.80 UNSPEC ABNORMAL MAMMOGRAM 01/30/2017 MADDI RALPH DO W Ot V67.9 FOLLOW-UP EXAM NOS 01/30/2017 MADDI RALPH DO W Ot 793.80 UNSPEC ABNORMAL MAMMOGRAM 01/30/2017 MADDI RALPH DO W Ot 610.1 DIFFUS CYSTIC MASTOPATHY 01/31/2017 YAMILKA UREÑA, FARNAZ Hernandez Ot S83.241A OTH TEAR OF MEDIAL MENISCUS, CURRENT INJ 01/31/2017 FARNAZ PRATHER MD Ot S83.281A OTH TEAR OF LAT MENSC, CURRENT INJURY, R 01/31/2017 FARNAZ PRATHER MD Ot X58.XXXA EXPOSURE TO OTHER SPECIFIED FACTORS, INI 01/31/2017 FARNAZ PRATHER MD Ot Y99.8 OTHER EXTERNAL CAUSE STATUS 02/28/2017 Ot 610.1 DIFFUS CYSTIC MASTOPATHY 02/28/2017 Ot V67.09 SURGERY FOLLOW-UP, OTHER SURGERY 02/28/2017 Ot 793.80 UNSPEC ABNORMAL MAMMOGRAM 02/28/2017 Ot V67.9 FOLLOW-UP EXAM NOS 02/28/2017 RALPH DO, MADDI W Ot 793.80 UNSPEC ABNORMAL MAMMOGRAM 02/28/2017 RALPH DO, MADID W Ot V67.9 FOLLOW-UP EXAM NOS 02/28/2017 RALPH DO, MADDI W Ot 793.80 UNSPEC ABNORMAL MAMMOGRAM 02/28/2017 RALPH DO, MADDI W Ot 610.1 DIFFUS CYSTIC MASTOPATHY 02/28/2017 FARNAZ PRATHER MD Ot S83.241A OTH TEAR OF MEDIAL MENISCUS, CURRENT INJ 02/28/2017 FARNAZ PRATHER MD Ot S83.281A OTH TEAR OF LAT MENSC, CURRENT INJURY, R 02/28/2017 FARNAZ PRATHER MD Ot X58.XXXA EXPOSURE TO OTHER SPECIFIED FACTORS, INI 02/28/2017 FARNAZ PRATHER MD Ot Y99.8 OTHER EXTERNAL CAUSE STATUS 03/01/2017 FARNAZ PRATHER MD Ot S83.241A OTH TEAR OF MEDIAL MENISCUS, CURRENT INJ 03/01/2017 FARNAZ PRATHER MD Ot S83.281A OTH TEAR OF LAT MENSC, CURRENT INJURY, R 03/01/2017 FARNAZ PRATHER MD Ot X58.XXXA EXPOSURE TO OTHER SPECIFIED FACTORS, INI 03/01/2017 FARNAZ PRATHER MD Ot Y99.8 OTHER EXTERNAL CAUSE STATUS 03/22/2017 Ot 610.1 DIFFUS CYSTIC MASTOPATHY 03/22/2017 Ot V67.09 SURGERY FOLLOW-UP, OTHER SURGERY 03/22/2017 Ot 793.80 UNSPEC ABNORMAL MAMMOGRAM 03/22/2017 Ot V67.9 FOLLOW-UP EXAM NOS 03/22/2017 RALPH DO, MADDI W Ot 793.80 UNSPEC ABNORMAL MAMMOGRAM 03/22/2017 RALPH , MADDI W Ot V67.9 FOLLOW-UP EXAM NOS 03/22/2017 RALPH DO, MADDI W Ot 793.80 UNSPEC ABNORMAL MAMMOGRAM 03/22/2017 RALPH DO, MADDI W Ot 610.1 DIFFUS CYSTIC MASTOPATHY 03/22/2017 FARNAZ PRATHER MD Ot S83.241A OTH TEAR OF MEDIAL MENISCUS, CURRENT INJ 03/22/2017 FARNAZ PRATHER MD Ot S83.281A OTH TEAR OF LAT MENSC, CURRENT INJURY, R 03/22/2017 FARNAZ PRATHER MD Ot X58.XXXA EXPOSURE TO OTHER SPECIFIED FACTORS, INI 03/22/2017 YAMILKA UREÑA, FARNAZ Hernandez Ot Y99.8 OTHER EXTERNAL CAUSE STATUS 03/22/2017 Ot 610.1 DIFFUS CYSTIC MASTOPATHY 03/22/2017 Ot V67.09 SURGERY FOLLOW-UP, OTHER SURGERY 03/22/2017 Ot 793.80 UNSPEC ABNORMAL MAMMOGRAM 03/22/2017 Ot V67.9 FOLLOW-UP EXAM NOS 03/22/2017 RALPH DO, MADDI W Ot 793.80 UNSPEC ABNORMAL MAMMOGRAM 03/22/2017 RALPH DO, MADDI W Ot V67.9 FOLLOW-UP EXAM NOS 03/22/2017 RALPH DO, MADDI W Ot 793.80 UNSPEC ABNORMAL MAMMOGRAM 03/22/2017 RALPH DO, MADDI W Ot 610.1 DIFFUS CYSTIC MASTOPATHY 03/22/2017 FARNAZ PRATHER MD Ot S83.241A OTH TEAR OF MEDIAL MENISCUS, CURRENT INJ 03/22/2017 FARNAZ PRATHER MD Ot S83.281A OTH TEAR OF LAT MENSC, CURRENT INJURY, R 03/22/2017 FARNAZ PRATHER MD Ot X58.XXXA EXPOSURE TO OTHER SPECIFIED FACTORS, INI 03/22/2017 FARNAZ PRATHER MD Ot Y99.8 OTHER EXTERNAL CAUSE STATUS 03/26/2017 EMERALD TORRES APRN Ot M17.11 UNILATERAL PRIMARY OSTEOARTHRITIS, RIGHT 03/26/2017 EMERALD TORRES APRN Ot M25.561 PAIN IN RIGHT KNEE 03/26/2017 EMERALD TORRES APRN Ot Z77.22 CNTCT W AND EXPSR TO ENVIRON TOBACCO SMO 02/26/2018 SAMMIE UREÑA, BALDOMERO Jessica Ot F17.210 NICOTINE DEPENDENCE, CIGARETTES, UNCOMPL 02/26/2018 SAMMIE UREÑA, BALDOMERO Jessica Ot K04.7 PERIAPICAL ABSCESS WITHOUT SINUS 02/26/2018 SAMMIE UREÑA, ABLDOMERO Jessica Ot K08.89 OTHER SPECIFIED DISORDERS OF TEETH AND S 02/26/2018 SAMMIE UREÑA, BALDOMERO Jessica Ot Z79.52 SHELTER (CURRENT) USE OF SYSTEMIC STER 02/26/2018 SAMMIE UREÑA, BALDOMERO Jessica Ot Z88.0 ALLERGY STATUS TO PENICILLIN Procedures Code Description [place] [address] INFLUENZA A & B (IN-HOUSE) 04/09/2012 Results Test Result Range CBC - 01/24/17 10:29 WHITE BLOOD CELL COUNT 7.2 Thousand/uL 3.8-10.8 RED BLOOD CELL COUNT 4.68 Million/uL 3.80-5.10 HEMOGLOBIN 13.6 g/dL 11.7-15.5 HEMATOCRIT 40.7 % 35.0-45.0 MCV 87.0 fL 80.0-100.0 MCH 29.1 pg 27.0-33.0 MCHC 33.4 g/dL 32.0-36.0 RDW 13.1 % 11.0-15.0 PLATELET COUNT 333 Thousand/uL 140-400 MPV 10.1 fL 7.5-12.5 ABSOLUTE NEUTROPHILS 3636 cells/uL 8445-6789 ABSOLUTE LYMPHOCYTES 2722 cells/uL 850-3900 ABSOLUTE MONOCYTES 461 cells/uL 200-950 ABSOLUTE EOSINOPHILS 331 cells/uL 15-500 ABSOLUTE BASOPHILS 50 cells/uL 0-200 NEUTROPHILS 50.5 % NRG LYMPHOCYTES 37.8 % NRG MONOCYTES 6.4 % NRG EOSINOPHILS 4.6 % NRG BASOPHILS 0.7 % NRG TSH - 01/24/17 10:29 TSH 0.61 mIU/L NRG Complete blood count (CBC) with automated white blood cell (WBC) differential - 03/22/17 22:20 Blood leukocytes automated count (number/volume) 7.9 10*3/uL 4.3-11.0 Blood erythrocytes automated count (number/volume) 4.89 10*6/uL 4.35-5.85 Venous blood hemoglobin measurement (mass/volume) 14.2 g/dL 11.5-16.0 Blood hematocrit (volume fraction) 37 % 35-52 Automated erythrocyte mean corpuscular volume 77 [foz_us] 80-99 Automated erythrocyte mean corpuscular hemoglobin (mass per erythrocyte) 29 pg 25-34 Automated erythrocyte mean corpuscular hemoglobin concentration measurement ( mass/volume) 38 g/dL 32-36 Automated erythrocyte distribution width ratio 12.9 % 10.0-14.5 Automated blood platelet count (count/volume) 282 10*3/uL 130-400 Automated blood platelet mean volume measurement 8.9 [foz_us] 7.4-10.4 Automated blood neutrophils/100 leukocytes 49 % 42-75 Automated blood lymphocytes/100 leukocytes 40 % 12-44 Blood monocytes/100 leukocytes 6 % 0-12 Automated blood eosinophils/100 leukocytes 4 % 0-10 Automated blood basophils/100 leukocytes 1 % 0-10 Blood neutrophils automated count (number/volume) 3.9 10*3 1.8-7.8 Blood lymphocytes automated count (number/volume) 3.1 10*3 1.0-4.0 Blood monocytes automated count (number/volume) 0.4 10*3 0.0-1.0 Automated eosinophil count 0.3 10*3/uL 0.0-0.3 Automated blood basophil count (count/volume) 0.1 10*3/uL 0.0-0.1 Serum or plasma C reactive protein measurement (mass/volume) - 03/22/17 22:20 Serum or plasma C reactive protein measurement (mass/volume) 0.64 mg /dL 0.00-0.50 Erythrocyte sedimentation rate by westergren method - 03/22/17 22:20 Erythrocyte sedimentation rate by westergren method 10 mm 0-30 Encounters ACCT No. Visit Date/Time Discharge Status Pt. Type Provider Facility Loc./Unit Complaint [id number] 04/29/2012 16:15:00 04/29/2012 23:59:59 CLS Outpatient [id number] 04/09/2012 16:28:00 04/09/2012 23:59:59 CLS Outpatient [id number] 02/23/2018 18:34:00 02/23/2018 19:10:00 DIS Outpatient BALDOMERO COCHRAN MD [facility] ER DENTAL PAIN/FACIAL SWELLING [id number] 03/22/2017 21:38:00 03/22/2017 22:58:00 DIS Outpatient EMERALD TORRES APRN [facility] ER RT KNEE PAIN [id number] 01/30/2017 08:51:00 01/30/2017 23:59:59 CLS Outpatient YAMILKA UREÑA, FARNAZ Hernandez [facility] RAD M25.461 EFFUSION,RIGHT KNEE [id number] 12/24/2016 19:04:00 12/24/2016 21:39:00 DIS Emergency ELIZABETH ESPINOZA [facility] ER R LEG PAIN [id number] 11/24/2016 23:20:00 11/24/2016 23:41:00 DIS Emergency BALDOMERO COCHRAN MD [facility] ER UPPER ABD PAIN [id number] 02/02/2014 14:07:00 02/02/2014 23:59:59 CLS Outpatient LOREE LOZANO, MADDI W [facility] RAD FIBROCYSTIC BREASTS [id number] 01/09/2013 13:38:00 01/09/2013 23:59:59 CLS Outpatient RALPH DO, MADDI W [facility] RAD ABNORMAL BREAST US [id number] 12/12/2012 12:58:00 12/12/2012 23:59:59 CLS Outpatient RALPH , MADDI W [facility] RAD SIX MONTH FOLLOW-UP,ABN MAMMO [id number] 06/11/2012 13:44:00 Document Registration [id number] 12/12/2011 13:56:00 Document Registration [id number] 01/12/2011 05:39:00 Document Registration [id number] 01/09/2011 08:32:00 Document Registration [id number] 12/16/2010 10:19:00 Document Registration [id number] 10/11/2010 10:48:00 Document Registration [id number] 06/21/2010 12:47:00 Document Registration [id number] 11/24/2009 13:49:00 Document Registration [id number] 10/19/2009 10:57:00 Document Registration [id number] 07/14/2009 09:07:00 Document Registration [id number] 03/23/2009 13:29:00 Document Registration [id number] 09/20/2017 13:15:00 09/20/2017 23:59:59 CLS Outpatient ABDELRAHMAN FORTUNE [facility] [id number] 01/24/2017 09:40:00 Document Registration
--- OUTSIDE RECORDS SUMMARY | 2018-03-16 18:55 | XMS REPORT ---
Author Author GOPI FELIX Organization [facility] [place] Address [address] [place] [address] Care Team Providers Care Assembler Name Role Phone GOPI FELIX Unavailable PROBLEMS Type Condition ICD9-CM Code [id number] Code Onset Dates Condition Status SNOMED Code Problem Other chronic pain G89.29 Active 56986164 Problem Gastroesophageal reflux disease without esophagitis K21.9 Active [id number] ALLERGIES No Information ENCOUNTERS Encounter Location Date Diagnosis [place] [address] [address] Sep, [address] [address] Jun, Encounter to establish care Z76.89 ; Other chronic pain G89.29 ; Pain in right knee M25.561 and Gastroesophageal reflux disease without esophagitis K21.[address] [address] Jun, [place] [address] [address] Mar, Effusion, right knee M25.[address] [address] Feb, Tibialis tendinitis of right lower extremity M76.821 and Chondromalacia, right knee M94.261 [place] [address] [address] Jan, Effusion, right knee M25.461 and Fatigue, unspecified type R53.83 [facility] [address] [id number] 15 Sep, 2014 Dental examination V72.2 [place] [address] [facility] [id number] [address] 14 Jun, 2014 [facility] [place] [address] [id number] [address] Jun, [facility] [place] [address] [address] Apr, [facility] [place] [address] [place] [id number] [address] Mar, [facility] [place] [address] [facility] [id number] [address] May, [facility] [place] [address] [place] [id number] [address] Mar, [facility] [place] [address] [facility] [id number] [address] Apr, IMMUNIZATIONS No Known Immunizations SOCIAL HISTORY Never Assessed REASON FOR VISIT Right knee pain/effusion, normal x-rays at [facility], suspect possible meniscal tear- MRI done, Consult Gopi Sutton RT(R) PLAN OF CARE Activity Details Follow Up prn Reason: VITAL SIGNS Height 62 in 2017-02-22 Blood pressure systolic 118 mmHg 2017-02-22 Blood pressure diastolic 64 mmHg 2017-02-22 MEDICATIONS Unknown Medications RESULTS No Results PROCEDURES Procedure Date Ordered Result Body Site DRAIN/INJECT, JOINT/BURSA Feb 22, 2017 DEPO MEDROL 80 MG/ML Feb 22, 2017 INSTRUCTIONS MEDICATIONS ADMINISTERED No Known Medications MEDICAL (GENERAL) HISTORY Type Description Date Surgical History cyst removed from left leg on right side of the knee and from her breast
--- OUTSIDE RECORDS SUMMARY | 2018-03-16 18:55 | XMS REPORT ---
Author Author ABDELRAHMAN FORTUNE Organization [facility] Address [address] [place] [address] Care Team Providers Care Cooker Tender Name Role Phone LINDA FORTUNETA Unavailable PROBLEMS Type Condition ICD9-CM Code [id number] Code Onset Dates Condition Status SNOMED Code Problem Other chronic pain G89.29 Active 59556277 Problem Gastroesophageal reflux disease without esophagitis K21.9 Active 477962544 ALLERGIES Substance Reaction Event Type Date Status Penicillin G Potassium hives Drug Allergy Jun, Active ENCOUNTERS Encounter Location Date Diagnosis [place] [id number] [address] Sep, Patellar tendinitis, right knee M76.51 [facility] [address] [address] Jun, Encounter to establish care Z76.89 ; Other chronic pain G89.29 ; Pain in right knee M25.561 and Gastroesophageal reflux disease without esophagitis K21.9 [facility] [address] [address] Jun, [place] [address] [address] Mar, Effusion, right knee M25.461 [facility] [address] [address] Feb, Tibialis tendinitis of right lower extremity M76.821 and Chondromalacia, right knee M94.261 [facility] [address] [place] [id number] [place] [address] Jan, Effusion, right knee M25.461 and Fatigue, unspecified type R53.83 [facility] [address] [id number] 15 Sep, 2014 Dental examination V72.2 [facility] [address] [place] [id number] [address] 14 Jun, 2014 [facility] [address] [place] [id number] [address] 13 Jun, 2014 [facility] [address] [place] [id number] [address] Apr, [facility] [address] [place] [id number] [address] Mar, [facility] [id number] [address] May, [facility] [address] [place] [id number] [address] Mar, [facility] [address] [place] [id number] [address] Apr, IMMUNIZATIONS No Known Immunizations SOCIAL HISTORY Never Assessed REASON FOR VISIT Establish Care[facility], Wanting to get some arthritis meds. Heartburn meds PLAN OF CARE Activity Details Follow Up 3 months or as indicated by lab Reason: VITAL SIGNS Height 62 in 2017-07-13 Weight 131.5 lbs 2017-07-13 Temperature 99.2 degrees Fahrenheit 2017-07-13 Heart Rate 88 bpm 2017-07-13 Respiratory Rate 20 2017-07-13 BMI 24.05 kg/m2 2017-07-13 Blood pressure systolic 98 mmHg 2017-07-13 Blood pressure diastolic 60 mmHg 2017-07-13 MEDICATIONS Medication Instructions Dosage Frequency Start Date End Date Duration Status Zantac 150 MG Orally Once a day 1 tablet at bedtime 24h Jun, 30 day(s) Active Meloxicam 15 mg Orally Once a day 1 tablet 24h Jun, Sep, 30 day(s) Active RESULTS No Results PROCEDURES No Known procedures INSTRUCTIONS MEDICATIONS ADMINISTERED No Known Medications MEDICAL (GENERAL) HISTORY Type Description Date Surgical History cyst removed from left leg on right side of the knee and from her breast
[2018-03-16] MEDS ORDERED: RANI150T46 PO (19:12)
--- NOTE | 2018-03-16 19:16 | NUR ---
ice pack applied
--- NOTE | 2018-03-16 19:23 | ED Upper Extremity ---
General Chief Complaint: Upper Extremity Stated Complaint: INJ FINGER LEFT HAND Nursing Triage Note: left index finger crush injury Nursing Sepsis Screen: No Definite Risk Source: patient Exam Limitations: no limitations History of Present Illness Date Seen by Provider: Mar 16, 2018 Time Seen by Provider: 19:21 Initial Comments To ER with reports of a laceration and crush injury to the left pointer finger. This occurred just prior to arrival while carrying a bed frame. Onset: just prior to arrival Severity: moderate Pain/Injury Location: left 2nd finger Method of Injury: direct blow Modifying Factors: Worse With Movement Allergies and Home Medications Allergies Coded Allergies: Penicillins (Unverified Allergy, Mild, 04/20/09) Home Medications Naproxen 500 Mg Tablet, 500 MG PO BID Prescribed by: ELIZABETH PENDLETON on 12/24/162136 Patient Home Medication List Home Medication List Reviewed: Yes Review of Systems Constitutional: see HPI EENTM: see HPI Respiratory: no symptoms reported Cardiovascular: no symptoms reported Musculoskeletal: see HPI Skin: no symptoms reported Psychiatric/Neurological: No Symptoms Reported Past Qrmwkfl-Uxiltf-Rrgpuo Hx Patient Social History Alcohol Use: Denies Use Recreational Drug Use: No Smoking Status: Current Everyday Smoker Type Used: Cigarettes 2nd Hand Smoke Exposure: Yes Recent Foreign Travel: No Contact w/Someone Who Travel: No Recent Infectious Disease Expo: No Recent Hopitalizations: No Immunizations Up To Date Tetanus Booster (TDap): Unknown Seasonal Allergies Seasonal Allergies: Yes Past Medical History Surgeries: Yes (cyst removal leg, breast) Respiratory: No Cardiac: No Neurological: No : No Reproductive Disorders: No RECOVERY COORDINATOR History: Menopausal Sexually Transmitted Disease: No Genitourinary: No Gastrointestinal: Yes Gastroesophageal Reflux Musculoskeletal: Yes Arthritis Endocrine: No HEENT: No Cancer: No Psychosocial: No Integumentary: No Blood Disorders: No Family Medical History No Pertinent Family Hx Physical Exam Vital Signs Vital Signs - First Documented 03/16/18 19:06 Temp 97.7 Pulse 72 Resp 16 B/P (MAP) 140/70 (93) Pulse Ox 100 O2 Delivery Room Air Capillary Refill : Less Than 3 Seconds Height, Weight, BMI Height: 5'2.00" Weight: 127lbs. 0oz. 57.814420cy; BMI Method:Stated General Appearance: WD/WN, no apparent distress HEENT: PERRL/EOMI, normal ENT inspection Respiratory: no respiratory distress Gastrointestinal: normal bowel sounds, non tender Shoulder: normal inspection, non-tender Elbow/Forearm: normal inspection, non-tender, Left Wrist: Yes normal inspection, Yes non-tender Hand: normal inspection, non-tender, Left, deformity (to the proximal phalanx of the laceration to the radial side dorsal aspect pointer finger. Retains brisk capillary refill of fingertips.) Neurologic/Psychiatric: alert, normal mood/affect, oriented x 3 Skin: normal color, warm/dry Procedures/Interventions Wound Location: Upper Extremities Wound Length (cm): 0.5 Wound's Depth, Shape: linear Wound Explored: clean Irrigated w/ Saline (ccs): 20 Anesthesia: 1% Lidocaine Suture: Ethlion Suture Size: 4-0 Number of Sutures: 2 Layer Closure?: 1 Number Deep Layer Sutures: 0 Progress Anesthetized with 1.5 mL of 1% lidocaine without epinephrine locally. Wound then scrubbed with chlorhexidine/saline solution then irrigated with the same. Closed with 2 simple interrupted sutures size 4-0 Ethilon covered with a Band- Aid. Progress/Results/Core Measures Results/Orders My Orders Orders - EMERALD TORRES APRN Hand, Left, 3 Views (03/16/18 19:11) Lidocaine 1% Inj 20 Ml (Xylocaine 1% Inj (03/16/18 19:30) Hydrocodone/Apap 5/325 Tablet (Lortab 5 (03/16/18 19:30) Medications Given in ED Current Medications Medications Dose Ordered Sig/[place] Route Start Time Stop Time Status Last Admin Dose Admin Acetaminophen/ Hydrocodone Bitart 1 tab ONCE ONCE PO 03/16/18 19:30 03/16/18 19:31 DC 03/16/18 19:23 1 TAB Lidocaine HCl 2 ml ONCE ONCE INJ 03/16/18 19:30 03/16/18 19:31 DC 03/16/18 19:23 2 ML Vital Signs/I&O 03/16/18 03/16/18 19:06 19:23 Temp 97.7 97.7 Pulse 72 Resp 16 B/P (MAP) 140/70 (93) Pulse Ox 100 O2 Delivery Room Air Blood Pressure Mean: 93 Departure Impression Primary Impression: Finger laceration Qualified Codes: S61.211A - Laceration without foreign body of left index finger without damage to nail, initial encounter Disposition: 01 HOME, SELF-CARE Condition: Stable Departure-Patient Inst. Decision time for Depature: 19:29 Referrals: FARNAZ PRATHER MD (PCP/Family) Primary Care Physician Patient Instructions: Laceration Repair With Stitches (DC) Add. Discharge Instructions: 1. Return to ER for any concerns 2. Tylenol and Motrin for pain control 3. Return to ER to have the stitches removed in 7-10 days. All discharge instructions reviewed with patient and/or family. Voiced understanding. Scripts Cephalexin (Keflex) 500 Mg Capsule 500 MG PO TID, #9 CAP Prov: EMERALD TORRES APRN 03/16/18 EMERALD TORRES APRN Mar 16, 2018 19:23
[2018-03-16] MEDS ORDERED: HYDROcodone/APAP 5 MG/325 MG (LORTAB) TAB PO ONE (19:30)
[2018-03-16] MEDS ORDERED: LIDOCAINE 1% INJ 20 ML 20 ML VIAL INJ ONE (19:30)
[2018-03-16] MEDS ORDERED: CEPH-507 PO (19:40)
--- NOTE | 2018-03-16 19:55 | Diagnostic Imaging Report ---
INDICATION: Crush injury to the finger. TECHNIQUE: Three views of the left hand. CORRELATION STUDY: None FINDINGS: There is normal alignment and appearance of the osseous structures of the hand. The joint spaces are maintained. There is no acute fracture. Prominent irregular soft tissue density of the index finger. No definitive foreign body. IMPRESSION: 1. Negative for acute bony abnormality of the hand. Dictated by: Dictated on workstation # [id number]
[2018-03-16 19:56] VITALS: BP 140/70
[2018-03-16] MEDS ORDERED: TETANUS,DIPTH,PERTUSS P/F (BOOSTRIX) 0.5 ML VIAL IM ONE (20:00)
== END 2018-03-16 19:55 | disposition home or self-care (01) ==
LOC: EDUNIT# 18:49 → ER 18:51
DX: S61.211A Laceration without foreign body of left index finger without damage to nail, initial encounter (principal); K21.9 Gastro-esophageal reflux disease without esophagitis; F17.210 Nicotine dependence, cigarettes, uncomplicated; Z88.0 Allergy status to penicillin; W26.8XXA Contact with other sharp object(s), not elsewhere classified, initial encounter
CPT/HCPCS: 12011; 73130; 90471; 90715

== ENCOUNTER 2018-03-25 18:39 | Emergency (ER) | payer SELFPAY ==
[~2018-03-25] VITALS: Ht 157.5 cm; Wt 59.0 kg
[~2018-03-25 18:39] MED LIST changes: +CEPH-507 PO; +RANI150T46 PO
--- OUTSIDE RECORDS SUMMARY | 2018-03-25 18:44 | XMS REPORT | Continuity of Care Document ---
Demographics Preferred Language Unknown Marital Status Unknown Alevism Affiliation Unknown Race Unknown Ethnic Group Unknown Author Author [facility] Address Unknown Phone Unavailable Allergies Active Description Code Type Severity Reaction Onset Reported/Identified Relationship to Patient Clinical Status Yes Penicillins [id number] Drug Allergy Mild N/A 04/20/2009 Yes Penicillins [...] Ot M25.461 EFFUSION, RIGHT KNEE 12/24/2016 ELIZABETH EPSINOZA Ot M79.604 PAIN IN RIGHT LEG 12/24/2016 [...] MAMMOGRAM 02/28/2017 RALPH DO, MADDI W Ot V67.9 FOLLOW-UP EXAM NOS 02/28/2017 [...] V67.9 FOLLOW-UP EXAM NOS 03/22/2017 RALPH DO, MADID W Ot 793.80 UNSPEC ABNORMAL MAMMOGRAM 03/22/2017 [...] PERIAPICAL ABSCESS WITHOUT SINUS 02/26/2018 SAMMIE UREÑA, BALDOMERO Jessica Ot K08.89 OTHER SPECIFIED DISORDERS OF TEETH AND S 02/26/2018 BALDOMERO COCHRAN MD Ot Z79.52 GROUP HOME (CURRENT) USE OF SYSTEMIC STER 02/26/2018 BALDOMERO COCHRAN MD Ot Z88.0 ALLERGY STATUS TO PENICILLIN 03/16/2018 EMERALD TORRES APRN Ot F17.210 NICOTINE DEPENDENCE, CIGARETTES, UNCOMPL 03/16/2018 EMERALD TORRES APRN Ot K21.9 GASTRO-ESOPHAGEAL REFLUX DISEASE WITHOUT 03/16/2018 EMERALD TORRES APRN Ot S61.211A LACERATION W/O FB OF L IDX FNGR W/O BRENT 03/16/2018 EMERALD TORRES APRN Ot W26.8XXA CONTACT WITH OTHER SHARP OBJECT(S), NEC, 03/16/2018 EMERALD TORRES APRN Ot Z88.0 ALLERGY STATUS TO PENICILLIN 03/20/2018 EMERALD TORRES APRN Ot F17.210 NICOTINE DEPENDENCE, CIGARETTES, UNCOMPL 03/20/2018 EMERALD TORRES APRN Ot K21.9 GASTRO-ESOPHAGEAL REFLUX DISEASE WITHOUT 03/20/2018 EMERALD TORRES APRN Ot S61.211A LACERATION W/O FB OF L IDX FNGR W/O BRENT 03/20/2018 EMERALD TORRES APRN Ot W26.8XXA CONTACT WITH OTHER SHARP OBJECT(S), NEC, 03/20/2018 EMERALD TORRES APRN Ot Z88.0 ALLERGY STATUS TO PENICILLIN Procedures Code [place] [address] INFLUENZA A & B (IN-HOUSE) 04/09/2012 Results [...] 10.1 fL 7.5-12.5 ABSOLUTE NEUTROPHILS 3636 cells/uL 4740-6370 ABSOLUTE LYMPHOCYTES 2722 cells/uL 850-3900 ABSOLUTE MONOCYTES [...] Status Pt. Type Provider Facility Loc./Unit Complaint [id number] 04/29/2012 16:15:00 04/29/2012 23:59:59 CLS Outpatient [id number] 04/09/2012 16:28:00 04/09/2012 23:59:59 CLS Outpatient [id number] 03/16/2018 18:51:00 03/16/2018 19:55:00 DIS Emergency EMERALD TORRES APRN [facility] INJ FINGER LEFT HAND [id number] 02/23/2018 18:34:00 02/23/2018 19:10:00 DIS Outpatient BALDOMERO COCHRAN MD [facility] DENTAL PAIN/FACIAL SWELLING [id number] 03/22/2017 21:38:00 03/22/2017 22:58:00 DIS Outpatient EMERALD TORRES APRN [facility] RT KNEE PAIN [id number] 01/30/2017 08:51:00 01/30/2017 23:59:59 CLS Outpatient YAMILKA UREÑA, FARNAZ Hernandez [facility] M25.461 EFFUSION,RIGHT KNEE [id number] 12/24/2016 19:04:00 12/24/2016 21:39:00 DIS Emergency ELIZABETH ESPINOZA [facility] R LEG PAIN [id number] 11/24/2016 23:20:00 11/24/2016 23:41:00 DIS Emergency BALDOMERO COCHRAN MD [facility] UPPER ABD PAIN [id number] 02/02/2014 14:07:00 02/02/2014 23:59:59 CLS Outpatient MADDI RALPH DO [facility] FIBROCYSTIC BREASTS [id number] 01/09/2013 13:38:00 01/09/2013 23:59:59 CLS Outpatient MADDI RALPH DO [facility] ABNORMAL BREAST US [id number] 12/12/2012 12:58:00 12/12/2012 23:59:59 CLS Outpatient MADDI RALPH DO W [facility] SIX MONTH FOLLOW-UP,ABN MAMMO [id number] 06/11/2012 13:44:00 Document Registration [id number] 12/12/2011 13:56:00 Document Registration [id number] 01/12/2011 05:39:00 Document Registration [id number] 01/09/2011 08:32:00 Document Registration [id number] 12/16/2010 10:19:00 Document Registration [id number] 10/11/2010 10:48:00 Document Registration [id number] 06/21/2010 12:47:00 Document Registration [id number] 11/24/2009 13:49:00 Document Registration [id number] 10/19/2009 10:57:00 Document Registration [id number] 07/14/2009 09:07:00 Document Registration [id number] 03/23/2009 13:29:00 Document Registration [id number] 09/20/2017 13:15:00 09/20/2017 23:59:59 CLS Outpatient [facility] [id number] 01/24/2017 09:40:00 Document Registration
[2018-03-25 18:53] VITALS: BP 119/69
== END 2018-03-25 18:58 | disposition home or self-care (01) ==
LOC: EDUNIT# 18:39 → ER 18:40
DX: S61.211D Laceration without foreign body of left index finger without damage to nail, subsequent encounter (principal); X58.XXXD Exposure to other specified factors, subsequent encounter